=== PATIENT | male | born 1950 | race Native Hawaiian/Other Pacific Islander ===

== ENCOUNTER 2018-11-07 09:54 | Inpatient (IN) | payer OTHER ==
[~2018-11-07 09:54] MED LIST: ACET5TAB36; AMIT25TA22 PO; APAP/HYDROCO1 TAB OR; BACLOFEN20 MG PO; BREO ELLIPTA 101 INH IN; CALCIUM 600+D31 TAB PO; CEPH500C20 PO; CIPRO500 MG PO; CULTURELL3 PO; CYAN10009 IM; DILANTIN100 MG; DOC-Q-LAX1 TAB PO; FE TABS325 MG PO; FLUT0.05 NAS; GABA100C2 PO; GABA300C2 PO; KRISTALOSE10 GM PO; LACTSYP31 PO; LEVO-T50 MCG PO; LEXAPRO20 MG; MELO-13 PO; MIACALCIN200 MG/ACT; MIRALAX3350 N1; MIRALAX3350 N1 PO; MIRAPEX0.5 MG PO; NORTRIPTYLIN25 MG PO; OMEPRAZOLE20 M1 PO; OXCA300T14 PO; PAROXETINE30 MG PO; PAXIL20 MG; PAXIL20 MG PO; PRAMIPEXOLE0.25 MG PO; PROAIR HFA IN; SIMV20TA2 PO; TRAM50TA PO; TRIAMCINOLON0.51 TOP; TRILEPTAL300 MG PO; UNITHROID75 MCG; WARF3TAB12 PO; WARFARIN4 MG; Z-PAK PO; ZOFRAN8 MG PO
[2018-11-14] MEDS ORDERED: BACLOFEN10 MG PO (23:57)
[2018-11-14] MEDS ORDERED: BREO ELLIPTA 101 INH INH (23:58)
[2018-11-14] MEDS ORDERED: CALCIUM CARBON600 M2 PO (23:59)
[2018-11-14] MEDS ORDERED: CARDURA4 MG PO (23:59)
[2018-11-14] MEDS ORDERED: WARF2TAB7 PO (23:59)
[2018-11-15] MEDS ORDERED: DOCU100C10 PO
[2018-11-15] MEDS ORDERED: CULTURELL3 PO
[2018-11-15] MEDS ORDERED: FERROUS SULF325 M1 PO (00:01)
[2018-11-15] MEDS ORDERED: FLONASE AL50 MCG/ACT INH (00:02)
[2018-11-15] MEDS ORDERED: MIACALCIN200 UNIT/A INH (00:03)
[2018-11-15] MEDS ORDERED: TIROSINT50 MCG PO (00:03)
[2018-11-15] MEDS ORDERED: MIRALAX3350 N1 PO (00:04)
[2018-11-15] MEDS ORDERED: MIRAPEX0.5 MG PO (00:04)
[2018-11-15] MEDS ORDERED: MYRBETRIQ50 MG PO (00:05)
[2018-11-15] MEDS ORDERED: MOBIC7.5 M1 PO (00:05)
[2018-11-15] MEDS ORDERED: GRALISE600 MG PO (00:06)
[2018-11-15] MEDS ORDERED: OXYBUTYNIN15 MG PO (00:06)
[2018-11-15] MEDS ORDERED: OMEP20CA PO (00:07)
[2018-11-15] MEDS ORDERED: TRILEPTAL300 MG PO (00:07)
[2018-11-15] MEDS ORDERED: PAXIL10 MG PO (00:07)
[2018-11-15] MEDS ORDERED: SIMV20TA2 PO (00:08)
[2018-11-15] MEDS ORDERED: GENERLAC10 GM/15 M PO (00:09)
[2018-11-15] MEDS ORDERED: GUAIFENESIN DM PO (00:10)
[2018-11-15] MEDS ORDERED: ZOFRAN8 MG PO (00:10)
[2018-11-15] MEDS ORDERED: TRAM50TA PO (03:19)
[2018-11-15] MEDS ORDERED: ARTIFICIAL TEAR1.4 % IO (03:20)
[2018-12-07] MEDS ORDERED: CEFTRIAXONE2 GM IV (10:51)
== END 2018-12-07 11:34 | disposition still patient (30) ==
LOC: PAVC 09:54
PROVIDERS: ADMIT Internal Medicine
DX: I63.50 Cerebral infarction due to unspecified occlusion or stenosis of unspecified cerebral artery (principal); J01.90 Acute sinusitis, unspecified; R47.01 Aphasia; J44.9 Chronic obstructive pulmonary disease, unspecified; I10 Essential (primary) hypertension; I73.9 Peripheral vascular disease, unspecified; I48.91 Unspecified atrial fibrillation; F03.90 Unspecified dementia, unspecified severity, without behavioral disturbance, psychotic disturbance, mood disturbance, and anxiety

== ENCOUNTER 2018-11-14 23:23 | Emergency (ER) | payer OTHER ==
[~2018-11-14] VITALS: Ht 177.8 cm; Wt 99.3 kg
[2018-11-14] MEDS ORDERED: BACLOFEN10 MG PO (23:57)
[2018-11-14] MEDS ORDERED: BREO ELLIPTA 101 INH INH (23:58)
[2018-11-14] MEDS ORDERED: CALCIUM CARBON600 M2 PO (23:59)
[2018-11-14] MEDS ORDERED: CARDURA4 MG PO (23:59)
[2018-11-14] MEDS ORDERED: WARF2TAB7 PO (23:59)
[2018-11-15] MEDS ORDERED: DOCU100C10 PO
[2018-11-15] MEDS ORDERED: CULTURELL3 PO
[2018-11-15] MEDS ORDERED: FERROUS SULF325 M1 PO (00:01)
[2018-11-15 00:02] LABS: PLATELET COUNT 251 K/uL (142-355)
[2018-11-15] MEDS ORDERED: FLONASE AL50 MCG/ACT INH (00:02)
[2018-11-15] MEDS ORDERED: TIROSINT50 MCG PO (00:03)
[2018-11-15] MEDS ORDERED: MIACALCIN200 UNIT/A INH (00:03)
[2018-11-15] MEDS ORDERED: MIRALAX3350 N1 PO (00:04)
[2018-11-15] MEDS ORDERED: MIRAPEX0.5 MG PO (00:04)
[2018-11-15] MEDS ORDERED: MYRBETRIQ50 MG PO (00:05)
[2018-11-15] MEDS ORDERED: MOBIC7.5 M1 PO (00:05)
[2018-11-15] MEDS ORDERED: OXYBUTYNIN15 MG PO (00:06)
[2018-11-15] MEDS ORDERED: GRALISE600 MG PO (00:06)
[2018-11-15] MEDS ORDERED: OMEP20CA PO (00:07)
[2018-11-15] MEDS ORDERED: PAXIL10 MG PO (00:07)
[2018-11-15] MEDS ORDERED: TRILEPTAL300 MG PO (00:07)
[2018-11-15] MEDS ORDERED: SIMV20TA2 PO (00:08)
[2018-11-15] MEDS ORDERED: GENERLAC10 GM/15 M PO (00:09)
[2018-11-15] MEDS ORDERED: GUAIFENESIN DM PO (00:10)
[2018-11-15] MEDS ORDERED: ZOFRAN8 MG PO (00:10)
[2018-11-15 00:21] LABS: POTASSIUM 4.4 mmol/L (3.6-5.2)
[2018-11-15] MEDS ORDERED: TRAM50TA PO (03:19)
[2018-11-15] MEDS ORDERED: ARTIFICIAL TEAR1.4 % IO (03:20)
[2018-11-15 03:25] VITALS: BP 133/66; TEMP 97.7
== END 2018-11-15 03:25 | disposition short-term general hospital (02) ==
LOC: ED 23:23
PROVIDERS: Emergency Medicine
DX: J32.1 Chronic frontal sinusitis (principal); G03.9 Meningitis, unspecified
CPT/HCPCS: 80053; 85027; 96365; 96366; 99284; J1956

== ENCOUNTER 2018-11-26 07:06 | Outpatient (CLI) | payer OTHER ==
[~2018-11-26 07:06] MED LIST changes: -ACET5TAB36; -AMIT25TA22 PO; -APAP/HYDROCO1 TAB OR; +ARTIFICIAL TEAR1.4 % IO; +BACLOFEN10 MG PO; -BACLOFEN20 MG PO; -BREO ELLIPTA 101 INH IN; +BREO ELLIPTA 101 INH INH; -CALCIUM 600+D31 TAB PO; +CALCIUM CARBON600 M2 PO; +CARDURA4 MG PO; -CEPH500C20 PO; -CIPRO500 MG PO; -CYAN10009 IM; -DILANTIN100 MG; -DOC-Q-LAX1 TAB PO; +DOCU100C10 PO; -FE TABS325 MG PO; +FERROUS SULF325 M1 PO; +FLONASE AL50 MCG/ACT INH; -FLUT0.05 NAS; -GABA100C2 PO; -GABA300C2 PO; +GENERLAC10 GM/15 M PO; +GRALISE600 MG PO; +GUAIFENESIN DM PO; -KRISTALOSE10 GM PO; -LACTSYP31 PO; -LEVO-T50 MCG PO; -LEXAPRO20 MG; -MELO-13 PO; -MIACALCIN200 MG/ACT; +MIACALCIN200 UNIT/A INH; -MIRALAX3350 N1; +MOBIC7.5 M1 PO; +MYRBETRIQ50 MG PO; -NORTRIPTYLIN25 MG PO; +OMEP20CA PO; -OMEPRAZOLE20 M1 PO; -OXCA300T14 PO; +OXYBUTYNIN15 MG PO; -PAROXETINE30 MG PO; +PAXIL10 MG PO; -PAXIL20 MG; -PAXIL20 MG PO; -PRAMIPEXOLE0.25 MG PO; -PROAIR HFA IN; +TIROSINT50 MCG PO; -TRIAMCINOLON0.51 TOP; -UNITHROID75 MCG; +WARF2TAB7 PO; -WARF3TAB12 PO; -WARFARIN4 MG; -Z-PAK PO
[2018-11-26 10:57] LABS: PLATELET COUNT 306 K/uL (142-355)
[2018-11-26 11:10] LABS: POTASSIUM 3.5 mmol/L (3.6-5.2)
== END 2018-11-26 23:03 | disposition home or self-care (01) ==
LOC: LAB 07:06
PROVIDERS: Internal Medicine
DX: R70.0 Elevated erythrocyte sedimentation rate (principal); R79.82 Elevated C-reactive protein (CRP); R68.89 Other general symptoms and signs; R79.89 Other specified abnormal findings of blood chemistry; R79.1 Abnormal coagulation profile
CPT/HCPCS: 36415; 80053; 85027; 85610; 85651; 86140

== ENCOUNTER 2018-12-03 03:23 | Outpatient (CLI) | payer OTHER ==
[~2018-12-03 03:23] MED LIST changes: +ACET5TAB36; +AMIT25TA22 PO; +APAP/HYDROCO1 TAB OR; +BACLOFEN20 MG PO; +BREO ELLIPTA 101 INH IN; +CALCIUM 600+D31 TAB PO; +CEPH500C20 PO; +CIPRO500 MG PO; +CYAN10009 IM; +DILANTIN100 MG; +DOC-Q-LAX1 TAB PO; +FE TABS325 MG PO; +FLUT0.05 NAS; +GABA100C2 PO; +GABA300C2 PO; +KRISTALOSE10 GM PO; +LACTSYP31 PO; +LEVO-T50 MCG PO; +LEXAPRO20 MG; +MELO-13 PO; +MIACALCIN200 MG/ACT; +MIRALAX3350 N1; +NORTRIPTYLIN25 MG PO; +OMEPRAZOLE20 M1 PO; +OXCA300T14 PO; +PAROXETINE30 MG PO; +PAXIL20 MG; +PAXIL20 MG PO; +PRAMIPEXOLE0.25 MG PO; +PROAIR HFA IN; +TRIAMCINOLON0.51 TOP; +UNITHROID75 MCG; +WARF3TAB12 PO; +WARFARIN4 MG; +Z-PAK PO
[2018-12-03 04:57] LABS: POTASSIUM 4.2 mmol/L (3.6-5.2)
[2018-12-03 05:15] LABS: PLATELET COUNT 252 K/uL (142-355)
== END 2018-12-03 19:48 | disposition home or self-care (01) ==
LOC: LAB 03:23
PROVIDERS: Internal Medicine
DX: R70.0 Elevated erythrocyte sedimentation rate (principal); R79.82 Elevated C-reactive protein (CRP); R68.89 Other general symptoms and signs; R79.89 Other specified abnormal findings of blood chemistry
CPT/HCPCS: 80053; 85027; 85651; 86140

== ENCOUNTER 2018-12-07 10:42 | Emergency (ER) | payer OTHER ==
[~2018-12-07] VITALS: Ht 177.8 cm; Wt 99.3 kg
[2018-12-07] MEDS ORDERED: CEFTRIAXONE2 GM IV (10:51)
[2018-12-07 11:36] LABS: POTASSIUM 4.3 mmol/L (3.6-5.2)
[2018-12-07 11:45] LABS: PARTIAL THROMBOPLASTIN TIME 52.8 SECONDS (24.5-33.6)
[2018-12-07 11:50] LABS: PLATELET COUNT 281 K/uL (142-355)
[2018-12-07 13:18] VITALS: BP 175/87; TEMP 98.1
== END 2018-12-07 14:15 ==
LOC: ED 10:42
PROVIDERS: Hospitalist
DX: E86.0 Dehydration (principal); J32.8 Other chronic sinusitis; Z79.01 Long term (current) use of anticoagulants
CPT/HCPCS: 80053; 80320; 85027; 85610; 85730; 93005; 96360; 99284

== ENCOUNTER 2018-12-07 11:59 | Inpatient (IN) | payer OTHER ==
[~2018-12-07 11:59] MED LIST changes: +CEFTRIAXONE2 GM IV
[2018-12-17 08:41] LABS: PLATELET COUNT 259 K/uL (142-355)
[2018-12-17 09:02] LABS: POTASSIUM 3.8 mmol/L (3.6-5.2)
[2018-12-24 05:51] LABS: PLATELET COUNT 198 K/uL (142-355)
[2018-12-24 06:14] LABS: POTASSIUM 4.1 mmol/L (3.6-5.2)
== END 2019-01-07 11:51 | disposition still patient (30) ==
LOC: PAVC 11:59
PROVIDERS: ADMIT Internal Medicine
DX: I63.50 Cerebral infarction due to unspecified occlusion or stenosis of unspecified cerebral artery (principal); J01.90 Acute sinusitis, unspecified; R47.01 Aphasia; J44.9 Chronic obstructive pulmonary disease, unspecified; I10 Essential (primary) hypertension; I73.9 Peripheral vascular disease, unspecified; I48.91 Unspecified atrial fibrillation; F03.90 Unspecified dementia, unspecified severity, without behavioral disturbance, psychotic disturbance, mood disturbance, and anxiety
CPT/HCPCS: 80053; 85027; 85651; 86140; 87070

== ENCOUNTER 2019-01-01 00:55 | Outpatient (CLI) | payer OTHER ==
[2019-01-01 01:43] LABS: POTASSIUM 4.1 mmol/L (3.6-5.2)
[2019-01-01 01:46] LABS: PLATELET COUNT 287 K/uL (142-355)
== END 2019-01-01 19:05 | disposition home or self-care (01) ==
LOC: LAB 00:55
PROVIDERS: Internal Medicine
DX: R70.0 Elevated erythrocyte sedimentation rate (principal); R79.82 Elevated C-reactive protein (CRP); R68.89 Other general symptoms and signs; R79.89 Other specified abnormal findings of blood chemistry
CPT/HCPCS: 80053; 85027; 85651; 86140

== ENCOUNTER 2019-01-04 04:49 | Outpatient (CLI) | payer OTHER | END 2019-01-04 23:04 | disposition home or self-care (01) | LOC: LAB 04:49 | DX: R79.1 Abnormal coagulation profile (principal); Z79.01 Long term (current) use of anticoagulants | CPT/HCPCS: 36415; 85610 ==

== ENCOUNTER 2019-01-05 13:10 | Outpatient (CLI) | payer OTHER | END 2019-01-05 23:46 | disposition home or self-care (01) | LOC: LAB 13:10 | DX: M86.8X8 Other osteomyelitis, other site (principal); J01.80 Other acute sinusitis | CPT/HCPCS: 87070; 87077; 87185 ==

== ENCOUNTER 2019-01-07 12:56 | Inpatient (IN) | payer OTHER | END 2019-02-07 17:15 | disposition still patient (30) | LOC: PAVC 12:56 | PROVIDERS: ADMIT Internal Medicine ==

== ENCOUNTER 2019-01-11 05:47 | Outpatient (CLI) | payer OTHER ==
[2019-01-11 06:53] LABS: PLATELET COUNT 328 K/uL (142-355)
[2019-01-11 07:30] LABS: POTASSIUM 4.5 mmol/L (3.6-5.2)
== END 2019-01-11 23:17 | disposition home or self-care (01) ==
LOC: LAB 05:47
PROVIDERS: Internal Medicine
DX: Z79.01 Long term (current) use of anticoagulants (principal); I10 Essential (primary) hypertension; E78.89 Other lipoprotein metabolism disorders; E78.49 Other hyperlipidemia; E03.8 Other specified hypothyroidism
CPT/HCPCS: 80053; 80061; 84153; 84443; 85027; 85610

== ENCOUNTER 2019-01-25 07:54 | Outpatient (CLI) | payer OTHER | END 2019-01-25 18:00 | disposition home or self-care (01) | LOC: LAB 07:54 | DX: Z79.01 Long term (current) use of anticoagulants (principal) | CPT/HCPCS: 36415; 85610 ==

== ENCOUNTER 2019-02-03 07:30 | Outpatient (CLI) | payer OTHER | END 2019-02-03 19:53 | disposition home or self-care (01) | LOC: LAB 07:30 | DX: Z79.01 Long term (current) use of anticoagulants (principal) | CPT/HCPCS: 85610 ==

== ENCOUNTER 2019-02-07 17:30 | Inpatient (IN) | payer OTHER | END 2019-03-09 12:55 | disposition still patient (30) | LOC: PAVC 17:30 | PROVIDERS: ADMIT Internal Medicine ==

== ENCOUNTER 2019-02-24 04:02 | Outpatient (CLI) | payer OTHER | END 2019-02-24 20:07 | disposition home or self-care (01) | LOC: LAB 04:02 | DX: Z79.01 Long term (current) use of anticoagulants (principal) | CPT/HCPCS: 85610 ==

== ENCOUNTER 2019-03-07 04:54 | Outpatient (CLI) | payer OTHER ==
[2019-03-07 06:18] LABS: PLATELET COUNT 264 K/uL (142-355)
== END 2019-03-07 22:30 | disposition home or self-care (01) ==
LOC: LAB 04:54
PROVIDERS: Internal Medicine
DX: R79.89 Other specified abnormal findings of blood chemistry (principal); R68.89 Other general symptoms and signs
CPT/HCPCS: 80053; 85027

== ENCOUNTER 2019-03-09 13:19 | Inpatient (IN) | payer OTHER | END 2019-04-09 14:04 | disposition still patient (30) | LOC: PAVC 13:19 | PROVIDERS: ADMIT Internal Medicine ==

== ENCOUNTER 2019-03-09 18:37 | Outpatient (CLI) | payer OTHER ==
[2019-03-09 18:53] LABS: PLATELET COUNT 252 K/uL (142-355)
== END 2019-03-09 23:27 | disposition home or self-care (01) ==
LOC: LABW 18:37
PROVIDERS: Internal Medicine
DX: L02.11 Cutaneous abscess of neck (principal)
CPT/HCPCS: 36415; 85027; 87040

== ENCOUNTER 2019-03-17 04:38 | Outpatient (CLI) | payer OTHER | END 2019-03-17 22:52 | disposition home or self-care (01) | LOC: LAB 04:38 | DX: I48.91 Unspecified atrial fibrillation (principal); J44.9 Chronic obstructive pulmonary disease, unspecified; I10 Essential (primary) hypertension; E78.49 Other hyperlipidemia | CPT/HCPCS: 36415; 85610 ==

== ENCOUNTER 2019-03-31 04:03 | Outpatient (CLI) | payer OTHER | END 2019-03-31 23:24 | disposition home or self-care (01) | LOC: LAB 04:03 | DX: Z79.01 Long term (current) use of anticoagulants (principal) | CPT/HCPCS: 85610 ==

== ENCOUNTER 2019-04-09 14:20 | Inpatient (IN) | payer OTHER | END 2019-05-09 08:00 | disposition still patient (30) | LOC: PAVC 14:20 | PROVIDERS: ADMIT Internal Medicine ==

== ENCOUNTER 2019-04-21 05:14 | Outpatient (CLI) | payer OTHER | END 2019-04-21 21:12 | disposition home or self-care (01) | LOC: LAB 05:14 | DX: Z79.01 Long term (current) use of anticoagulants (principal) | CPT/HCPCS: 36415; 85610 ==

== ENCOUNTER 2019-04-28 04:17 | Outpatient (CLI) | payer OTHER | END 2019-04-28 20:07 | disposition home or self-care (01) | LOC: LAB 04:17 | DX: Z79.01 Long term (current) use of anticoagulants (principal) | CPT/HCPCS: 85610 ==

== ENCOUNTER 2019-05-09 11:00 | Inpatient (IN) | payer OTHER | END 2019-06-09 09:27 | disposition still patient (30) | LOC: PAVC 11:00 | PROVIDERS: ADMIT Internal Medicine ==

== ENCOUNTER 2019-05-12 06:56 | Outpatient (CLI) | payer OTHER | END 2019-05-12 20:37 | disposition home or self-care (01) | LOC: LAB 06:56 | DX: D68.8 Other specified coagulation defects (principal) | CPT/HCPCS: 36415; 85610 ==

== ENCOUNTER 2019-05-26 06:05 | Outpatient (CLI) | payer OTHER | END 2019-05-26 19:25 | disposition home or self-care (01) | LOC: LAB 06:05 | DX: R79.1 Abnormal coagulation profile (principal) | CPT/HCPCS: 85610 ==

== ENCOUNTER 2019-06-09 04:43 | Outpatient (CLI) | payer OTHER | END 2019-06-09 22:00 | disposition home or self-care (01) | LOC: LAB 04:43 | DX: Z51.81 Encounter for therapeutic drug level monitoring (principal) | CPT/HCPCS: 36415; 85610 ==

== ENCOUNTER 2019-06-09 09:44 | Inpatient (IN) | payer OTHER | END 2019-07-10 10:43 | disposition still patient (30) | LOC: PAVC 09:44 | PROVIDERS: ADMIT Internal Medicine ==

== ENCOUNTER 2019-07-02 04:49 | Outpatient (CLI) | payer OTHER | END 2019-07-02 19:20 | disposition home or self-care (01) | LOC: LAB 04:49 | DX: I48.91 Unspecified atrial fibrillation (principal) | CPT/HCPCS: 85610 ==

== ENCOUNTER 2019-07-10 11:02 | Inpatient (IN) | payer OTHER | END 2019-08-08 14:09 | disposition still patient (30) | LOC: PAVC 11:02 | PROVIDERS: ADMIT Internal Medicine ==

== ENCOUNTER 2019-07-11 04:55 | Outpatient (CLI) | payer OTHER ==
[2019-07-11 06:46] LABS: PLATELET COUNT 232 K/uL (142-355)
[2019-07-11 07:14] LABS: POTASSIUM 4.4 mmol/L (3.6-5.2)
== END 2019-07-11 19:01 | disposition home or self-care (01) ==
LOC: LAB 04:55
PROVIDERS: Internal Medicine
DX: I63.50 Cerebral infarction due to unspecified occlusion or stenosis of unspecified cerebral artery (principal); I10 Essential (primary) hypertension; E03.9 Hypothyroidism, unspecified; D51.9 Vitamin B12 deficiency anemia, unspecified
CPT/HCPCS: 80053; 80061; 82607; 84443; 85027

== ENCOUNTER → 2019-07-30 | Outpatient (CLI) | payer OTHER | LOC: LAB 21:12 | DX: I48.91 Unspecified atrial fibrillation (principal) | CPT/HCPCS: 85610 ==

== ENCOUNTER 2019-08-08 14:25 | Inpatient (IN) | payer OTHER | END 2019-09-08 11:33 | disposition still patient (30) | LOC: PAVC 14:25 | PROVIDERS: ADMIT Internal Medicine ==

== ENCOUNTER 2019-08-30 04:22 | Outpatient (CLI) | payer OTHER | END 2019-08-30 20:47 | disposition home or self-care (01) | LOC: LAB 04:22 | DX: I48.20 Chronic atrial fibrillation, unspecified (principal); Z79.01 Long term (current) use of anticoagulants | CPT/HCPCS: 85610 ==

== ENCOUNTER 2019-09-08 11:56 | Inpatient (IN) | payer OTHER ==
[2019-09-22] MEDS ORDERED: WARF1TAB7 PO (03:11)
[2019-09-23] MEDS ORDERED: WARF2TAB7 PO (16:05)
== END 2019-09-28 07:00 | disposition expired ==
LOC: PAVC 11:56
PROVIDERS: ADMIT Internal Medicine

== ENCOUNTER 2019-09-21 22:04 | Inpatient (IN) | payer OTHER ==
[~2019-09-21] VITALS: Ht 185.4 cm; Wt 90.7 kg
[2019-09-21 22:12] VITALS: BP 125/72; TEMP 100.3
[2019-09-21 22:45] LABS: PLATELET COUNT 216 K/uL (142-355)
[2019-09-21 22:52] LABS: POTASSIUM 4.2 mmol/L (3.6-5.2); SODIUM 132 mmol/L (136-145)
[2019-09-22 02:17] VITALS: BP 114/66; TEMP 98.6; Ht 185.4 cm; Wt 90.7 kg
[2019-09-22] MEDS ORDERED: WARF1TAB7 PO (03:11)
[2019-09-22 04:00] VITALS: BP 87/51; TEMP 98.5
[2019-09-22 08:00] VITALS: BP 99/48; TEMP 100.6
[2019-09-22 12:00] VITALS: BP 119/68; TEMP 99.8
[2019-09-22 16:00] VITALS: BP 121/64; TEMP 99.5
[2019-09-22 20:00] VITALS: BP 120/67; TEMP 100.7
[2019-09-23] VITALS: BP 123/77; TEMP 101.2
[2019-09-23 04:00] VITALS: BP 138/62; TEMP 100
[2019-09-23 04:16] LABS: POTASSIUM 3.7 mmol/L (3.6-5.2)
[2019-09-23 04:19] LABS: PLATELET COUNT 178 K/uL (142-355)
[2019-09-23 08:00] VITALS: BP 125/76; TEMP 97.6
[2019-09-23 12:00] VITALS: BP 90/65; TEMP 99.7
[2019-09-23 16:00] VITALS: BP 104/69; TEMP 98.6
[2019-09-23] MEDS ORDERED: WARF2TAB7 PO (16:05)
[2019-09-23 20:00] VITALS: BP 98/56; TEMP 99.3
[2019-09-24] VITALS: BP 144/78; TEMP 98.2
[2019-09-24 03:48] VITALS: BP 127/64; TEMP 98.4
[2019-09-24 08:00] VITALS: BP 107/58; TEMP 98.2
[2019-09-24 12:00] VITALS: BP 110/76; TEMP 98.4
[2019-09-24 16:00] VITALS: BP 112/76; TEMP 98
[2019-09-24 20:00] VITALS: BP 108/76; TEMP 98.7
[2019-09-25] VITALS: BP 110/78; BP 93/44; TEMP 99; TEMP 99.4
[2019-09-25 04:00] VITALS: BP 134/70; TEMP 97
[2019-09-25 09:00] VITALS: BP 97/45; TEMP 99.6
[2019-09-25 14:00] VITALS: BP 97/51; TEMP 99.3
[2019-09-26] VITALS: BP 93/44; TEMP 99.4
[2019-09-26 04:00] VITALS: BP 108/53; TEMP 99.2
[2019-09-26 08:00] VITALS: BP 115/70; TEMP 98.5
[2019-09-26 12:00] VITALS: BP 105/76; TEMP 99.1
[2019-09-26 13:41] LABS: PLATELET COUNT 143 K/uL (142-355)
[2019-09-26 13:54] LABS: POTASSIUM 4.2 mmol/L (3.6-5.2)
[2019-09-26 20:00] VITALS: BP 108/62; TEMP 102.6
[2019-09-27] VITALS (7 sets, daily range): BP systolic 92–131; BP diastolic 44–70; TEMP 97.5–99.3
[2019-09-28] VITALS: BP 83/43; TEMP 100
[2019-09-28 04:00] VITALS: BP 66/44; TEMP 99.5
[2019-09-28 05:51] LABS: POTASSIUM 4.1 mmol/L (3.6-5.2)
[2019-09-28 06:10] LABS: PLATELET COUNT 144 K/uL (142-355)
[2019-09-28 08:00] VITALS: BP 83/54; TEMP 97.7
[2019-09-28 11:39] LABS: PLATELET COUNT 182 K/uL (142-355)
[2019-09-28 11:47] LABS: POTASSIUM 4.3 mmol/L (3.6-5.2)
== END 2019-09-28 12:20 | disposition expired | DRG 190 ==
LOC: ED 22:04 → MED/SURG 09-22
PROVIDERS: Family Medicine; Internal Medicine; Internal Medicine Endocrinology, Diabetes & Metabolism; ADMIT Internal Medicine
DX: J44.0 Chronic obstructive pulmonary disease with (acute) lower respiratory infection (principal); J18.8 Other pneumonia, unspecified organism; E87.1 Hypo-osmolality and hyponatremia; I69.351 Hemiplegia and hemiparesis following cerebral infarction affecting right dominant side; I48.91 Unspecified atrial fibrillation; E03.8 Other specified hypothyroidism; I69.320 Aphasia following cerebral infarction; N40.0 Benign prostatic hyperplasia without lower urinary tract symptoms; M15.8 Other polyosteoarthritis; B97.29 Other coronavirus as the cause of diseases classified elsewhere
CPT/HCPCS: 36415; 80048; 80053; 82550; 82553; 82728; 83605; 84484; 85027; 85379; 85610; 86140; 87502; 87635; 92950; 93005; 94760; 96365; 96366; 99284; G2023; J1940; J1956; J2405; U0002